=== PATIENT | male | born 1940 | race Asian ===

== ENCOUNTER → 2016-07-04 | Outpatient (CLI) | payer MEDICARE, BC ==
[~2016-07-04] MED LIST: AMIT10TA PO; ATOR10TA9 PO
[2016-07-04 10:54] LABS: HEMOGLOBIN 13.9 g/dL (13.7-18.0)
[2016-07-04 11:06] LABS: ASPARTATE AMINO TRANSFERASE 19 U/L (15-37); BLOOD UREA NITROGEN 14 mg/dL (7-18)
== END | disposition home or self-care (01) ==
LOC: CFH 08:31
PROVIDERS: ATTEND Physician Assistant
DX: E78.5 Hyperlipidemia, unspecified (principal); F41.9 Anxiety disorder, unspecified; Z12.5 Encounter for screening for malignant neoplasm of prostate
CPT/HCPCS: 36415; 80053; 80061; 84153; 85025; G0103

== ENCOUNTER → 2017-04-12 | Outpatient (CLI) | payer MEDICARE, BC ==
[2017-04-12 12:36] LABS: BASOPHILS # (AUTO) 0.05 x10^3/uL (0-0.1); BASOPHILS % (AUTO) 1 % (0-1); EOSINOPHILS # (AUTO) 0.36 x10^3/uL (0-0.4); EOSINOPHILS % (AUTO) 6 % (1-7); LYMPHOCYTES # (AUTO) 1.46 x10^3/uL (1-3.4); LYMPHOCYTES % (AUTO) 24 % (22-44); MD NO; MEAN CORPUSCULAR HEMOGLOBIN 34.7 pg (27.5-34.5); MEAN CORPUSCULAR VOLUME 105.2 fL (81-97); MEAN PLATELET VOLUME 7.2 fL (7.4-10.4); MONOCYTES # (AUTO) 0.48 x10^3/uL (0.2-0.8); MONOCYTES % (AUTO) 8 % (2-9); NEUTROPHILS # (AUTO) 3.86 x10^3/uL (1.8-6.8); NEUTROPHILS % (AUTO) 62 % (42-75); PLATELET COUNT 328 x10^3/uL (130-400); RED CELL DISTRIBUTION WIDTH 13.5 % (9.4-14.8)
[2017-04-12 12:46] LABS: ALANINE AMINOTRANSFERASE 27 U/L (12-78); ANION GAP 6 mmol/L (5-15); CALCIUM 9.3 mg/dL (8.5-10.1); CHLORIDE 107 mmol/L (98-107); CHOLESTEROL, TOTAL 182 mg/dL (140-239); CREATININE 1.02 mg/dL (0.7-1.3)
[2017-04-12 12:49] LABS: ALKALINE PHOSPHATASE 94 U/L (45-117); BILIRUBIN,TOTAL 0.6 mg/dL (0.2-1.0); CHOL/HDL RATIO 3.1; HDL CHOL % 32 % (26-37); HDL CHOLESTEROL (DIRECT) 58 mg/dL (40-60); LDL CHOLESTEROL,CALCULATED 97 mg/dL (54-169); LDL/HDL RATIO 1.7 (0.5-3.0); TOTAL PROTEIN 7.6 g/dL (6.4-8.2); TRIGLYCERIDES 135 mg/dL (50-200); VLDL CHOLESTEROL 27 mg/dL (0-25)
== END ==
LOC: CFH 07:57
PROVIDERS: ATTEND Nurse Practitioner Family
DX: Z12.5 Encounter for screening for malignant neoplasm of prostate (principal); I10 Essential (primary) hypertension; E78.5 Hyperlipidemia, unspecified; H91.90 Unspecified hearing loss, unspecified ear; R35.1 Nocturia
CPT/HCPCS: 36415; 80053; 80061; 84153; 85025; G0103

== ENCOUNTER → 2018-03-23 | Outpatient (CLI) | payer MEDICARE, BC ==
[2018-03-23 12:34] LABS: BASOPHILS # (AUTO) 0.06 x10^3/uL (0-0.1); BASOPHILS % (AUTO) 1 % (0-1); EOSINOPHILS # (AUTO) 0.43 x10^3/uL (0-0.4); EOSINOPHILS % (AUTO) 6 % (1-7); LYMPHOCYTES # (AUTO) 1.31 x10^3/uL (1-3.4); LYMPHOCYTES % (AUTO) 20 % (22-44); MD NO; MEAN CORPUSCULAR HEMOGLOBIN 34.3 pg (27.5-34.5); MEAN CORPUSCULAR HGB CONC 33.5 g/dL (33.2-36.2); MEAN CORPUSCULAR VOLUME 102.3 fL (81-97); MEAN PLATELET VOLUME 7.2 fL (7.4-10.4); MONOCYTES # (AUTO) 0.43 x10^3/uL (0.2-0.8); MONOCYTES % (AUTO) 6 % (2-9); NEUTROPHILS # (AUTO) 4.46 x10^3/uL (1.8-6.8); NEUTROPHILS % (AUTO) 67 % (42-75); PLATELET COUNT 334 x10^3/uL (130-400); RED BLOOD COUNT 4.13 x10^6/uL (4.38-5.82); RED CELL DISTRIBUTION WIDTH 13.9 % (9.4-14.8)
[2018-03-23 12:46] LABS: CHLORIDE 105 mmol/L (98-107)
[2018-03-23 12:51] LABS: ALANINE AMINOTRANSFERASE 30 U/L (12-78); ALBUMIN 3.8 g/dL (3.4-5.0); ALKALINE PHOSPHATASE 112 U/L (45-117); ANION GAP 7 mmol/L (5-15); BILIRUBIN,TOTAL 0.5 mg/dL (0.2-1.0); CALCIUM 9.1 mg/dL (8.5-10.1); CHOL/HDL RATIO 2.7; CHOLESTEROL, TOTAL 205 mg/dL (140-239); HDL CHOL % 37 % (26-37); HDL CHOLESTEROL (DIRECT) 75 mg/dL (40-60); LDL CHOLESTEROL,CALCULATED 101 mg/dL (54-169); LDL/HDL RATIO 1.3 (0.5-3.0); TRIGLYCERIDES 147 mg/dL (50-200); VLDL CHOLESTEROL 29 mg/dL (0-25)
== END | disposition home or self-care (01) ==
LOC: CFH 07:51
PROVIDERS: ATTEND Nurse Practitioner Family
DX: I10 Essential (primary) hypertension (principal); E78.5 Hyperlipidemia, unspecified; F41.9 Anxiety disorder, unspecified; R35.1 Nocturia
CPT/HCPCS: 36415; 80053; 80061; 84153; 85025

== ENCOUNTER → 2019-02-11 | Outpatient (CLI) | payer MEDICARE, BC ==
[2019-02-11 12:49] LABS: BASOPHILS # (AUTO) 0.03 x10^3/uL (0-0.1); BASOPHILS % (AUTO) 0 % (0-1); EOSINOPHILS # (AUTO) 0.35 x10^3/uL (0-0.4); EOSINOPHILS % (AUTO) 5 % (1-7); LYMPHOCYTES # (AUTO) 1.48 x10^3/uL (1-3.4); LYMPHOCYTES % (AUTO) 20 % (22-44); MD NO; MEAN CORPUSCULAR HEMOGLOBIN 34.1 pg (27.5-34.5); MEAN CORPUSCULAR HGB CONC 33.1 g/dL (33.2-36.2); MEAN PLATELET VOLUME 6.8 fL (7.4-10.4); MONOCYTES # (AUTO) 0.38 x10^3/uL (0.2-0.8); MONOCYTES % (AUTO) 5 % (2-9); NEUTROPHILS # (AUTO) 5.27 x10^3/uL (1.8-6.8); NEUTROPHILS % (AUTO) 70 % (42-75); PLATELET COUNT 361 x10^3/uL (130-400); RED BLOOD COUNT 4.16 x10^6/uL (4.38-5.82); RED CELL DISTRIBUTION WIDTH 13.2 % (9.4-14.8)
[2019-02-11 15:04] LABS: CHLORIDE 105 mmol/L (98-107)
[2019-02-11 15:14] LABS: ALANINE AMINOTRANSFERASE 30 U/L (12-78); ALKALINE PHOSPHATASE 102 U/L (45-117); ANION GAP 3 mmol/L (5-15); BILIRUBIN,TOTAL 0.4 mg/dL (0.2-1.0); CALCIUM 9.1 mg/dL (8.5-10.1); TOTAL PROTEIN 7.7 g/dL (6.4-8.2)
== END | disposition home or self-care (01) ==
LOC: CFH 09:29
PROVIDERS: ATTEND Nurse Practitioner Family
DX: I10 Essential (primary) hypertension (principal); F41.9 Anxiety disorder, unspecified
CPT/HCPCS: 36415; 80053; 85025

== ENCOUNTER → 2019-08-07 | Outpatient (CLI) | payer MEDICARE, BC ==
[2019-08-07 13:22] LABS: CHOL/HDL RATIO 2.9; LDL/HDL RATIO 1.5 (0.5-3.0)
== END | disposition home or self-care (01) ==
LOC: CFH 08:09
PROVIDERS: ATTEND Nurse Practitioner Family
DX: E78.5 Hyperlipidemia, unspecified (principal)
CPT/HCPCS: 36415; 80061

== ENCOUNTER 2020-02-19 14:25 | Emergency (ER) | payer MEDICARE, BC ==
[~2020-02-19] VITALS: Ht 152.4 cm; Wt 59.0 kg
[2020-02-19 15:21] LABS: BASOPHILS % (AUTO) 1 % (0-1); EOSINOPHILS % (AUTO) 0 % (1-7); LYMPHOCYTES % (AUTO) 14 % (22-44); MD NO; MEAN CORPUSCULAR HEMOGLOBIN 34.3 pg (27.5-34.5); MEAN CORPUSCULAR HGB CONC 34.4 g/dL (33.2-36.2); MEAN PLATELET VOLUME 6.3 fL (7.4-10.4); MONOCYTES % (AUTO) 14 % (2-9); NEUTROPHILS % (AUTO) 71 % (42-75); PLATELET COUNT 294 x10^3/uL (130-400); RED BLOOD COUNT 3.69 x10^6/uL (4.38-5.82); RED CELL DISTRIBUTION WIDTH 12.9 % (9.4-14.8)
[2020-02-19 15:32] LABS: ALANINE AMINOTRANSFERASE 22 U/L (12-78); ALBUMIN 3.6 g/dL (3.4-5.0); ANION GAP 9 mmol/L (5-15); CALCIUM 8.8 mg/dL (8.5-10.1); CHLORIDE 98 mmol/L (98-107); CREATININE 1.58 mg/dL (0.7-1.3)
[2020-02-19 15:35] LABS: ALKALINE PHOSPHATASE 88 U/L (45-117); BILIRUBIN,TOTAL 0.4 mg/dL (0.2-1.0)
--- NOTE | 2020-02-19 15:54 | NUR ---
PT RESTING IN BED. VSS.
[2020-02-19 15:56] LABS: TROPONIN I < 0.015 ng/mL (0.000-0.045)
[2020-02-19 16:28] VITALS: BP 148/62
[2020-02-22] MEDS ORDERED: SIMV5TAB14 PO (21:24)
[2020-02-22] MEDS ORDERED: ERYT250C37 PO (21:24)
[2020-02-22] MEDS ORDERED: CARV3.1212 PO (21:24)
[2020-02-22] MEDS ORDERED: DULO20CA45 PO (21:24)
[2020-02-22] MEDS ORDERED: PARO10TA56 PO (21:24)
[2020-02-22] MEDS ORDERED: VALS40TA2 PO (21:24)
[2020-02-22] MEDS ORDERED: ATEN25TA PO (21:24)
[2020-02-22] MEDS ORDERED: LISI2.5T PO (21:24)
[2020-02-23] MEDS ORDERED: DOCUSATE 100 MG CAPSULE PO PRN (01:30)
[2020-02-23] MEDS ORDERED: SODIUM CHLORIDE 0.9% 1,000 ML IV SCH (01:30)
[2020-02-23] MEDS ORDERED: ENOXAPARIN 40 MG/0.4 ML SQ SCH (01:30)
[2020-02-23] MEDS ORDERED: CEFTRIAXONE PMX 1GM/50ML 50 ML IV SCH (01:30)
[2020-02-23] MEDS ORDERED: PHARMACY MAY ADJ FOR RENAL FX MC PRN (01:30)
[2020-02-23] MEDS ORDERED: ACETAMINOPHEN 325 MG TABLET PO PRN ×2 (01:30)
[2020-02-23] MEDS ORDERED: DOXYCYCLINE 100 MG in DEXTROSE 5% 250 ML IV SCH (01:30)
[2020-02-23] MEDS ORDERED: CEFTRIAXONE PMX 1GM/50ML 50 ML IVPB SCH (01:30)
[2020-02-23] MEDS ORDERED: ONDANSETRON ODT 4 MG PO PRN (01:30)
[2020-02-23] MEDS ORDERED: MELATONIN 5 MG TABLET PO PRN (01:30)
[2020-02-23] MEDS ORDERED: ASCORBIC ACID 500 MG TABLET PO SCH (09:00)
[2020-02-23] MEDS ORDERED: ZINC SULFATE 220 MG CAPSULE PO SCH (09:00)
[2020-02-23] MEDS ORDERED: CHOLECALCIFEROL (VITAMIN D3) 5000 IU CAP PO SCH (09:00)
== END 2020-02-19 16:30 | disposition home or self-care (01) ==
LOC: ED 15:43
DX: U07.1 COVID-19 (principal); R06.00 Dyspnea, unspecified; R94.31 Abnormal electrocardiogram [ECG] [EKG]; E78.5 Hyperlipidemia, unspecified
CPT/HCPCS: 36415; 71045; 80053; 83880; 84484; 85025; 87635; 93005; 99285

== ENCOUNTER 2020-12-15 07:17 | Emergency (ER) | payer MEDICARE, BC ==
[~2020-12-15] VITALS: Ht 167.6 cm; Wt 56.7 kg
[~2020-12-15 07:17] MED LIST changes: +AMIT50TA PO; +AMOX1TAB12 PO; +ATEN25TA PO; +BRIM5DRO4 EACHEYE; +CARV12.52 PO; +CARV3.1212 PO; +DOCU-131 PO; +DORZ10DR26 EACHEYE; +DULO20CA45 PO; +ERYT250C37 PO; +GABA300C PO; +HYDR25TA6 PO; +LATA2.5D4 EACHEYE; +LISI2.5T12 PO; +LOSA25TA25 PO; +PANT40TA6 PO; +PARO10TA56 PO; +SENN-211 PO; +SIMV5TAB14 PO; +VALA500T8 PO; +VALS40TA2 PO
--- NOTE | 2020-12-15 07:33 | NUR ---
UPON RN ENTRY TO ROOM, PT IN BATHROOM. PT AMBULATES WELL INDEPENDENTLY FROM BATHROOM BACK TO ER ROOM. PT REPORTS URINARY FREQUENCY X3 NIGHTS. ALSO REQUESTS REFILL ON AMITRIPTYLINE HCL 50 MG. PT INSTRUCTED TO CHANGE INTO GOWN. NAD NOTED AT THIS TIME.
--- NOTE | 2020-12-15 08:43 | NUR ---
PT RESTING IN ROOM. CURRENTLY AWAITING ER PROVIDER FOR ASSESSMENT. RESPIRATIONS EVEN AND UNLABORED ON RA.
[2020-12-15 09:14] LABS: MICROSCOPIC INDICATED
--- NOTE | 2020-12-15 09:23 | NUR ---
PT RESTING IN ROOM. NAD NOTED AT THIS TIME. AWAITING LABS.
[2020-12-15 09:51] LABS: BASOPHILS % (AUTO) 1 % (0-1); EOSINOPHILS % (AUTO) 1 % (1-7); LYMPHOCYTES % (AUTO) 11 % (22-44); MEAN CORPUSCULAR HEMOGLOBIN 33.8 pg (27.5-34.5); MEAN CORPUSCULAR HGB CONC 33.9 g/dL (33.2-36.2); MEAN PLATELET VOLUME 7.3 fL (7.4-10.4); MONOCYTES % (AUTO) 10 % (2-9); NEUTROPHILS % (AUTO) 77 % (42-75); PLATELET COUNT 281 x10^3/uL (130-400); RED BLOOD COUNT 3.93 x10^6/uL (4.38-5.82); RED CELL DISTRIBUTION WIDTH 13.6 % (9.4-14.8)
[2020-12-15 10:04] LABS: ALBUMIN 3.4 g/dL (3.4-5.0); ANION GAP 6 mmol/L (5-15); CALCIUM 8.6 mg/dL (8.5-10.1); CHLORIDE 103 mmol/L (98-107); CREATININE 1.45 mg/dL (0.7-1.3)
--- NOTE | 2020-12-15 10:34 | NUR ---
PT CHART UP FOR RECHECK.
--- NOTE | 2020-12-15 10:38 | NUR ---
PT ASLEEP IN RWISTER, RESPIRATIONS EVEN AND UNLABORED ON RA.
--- NOTE | 2020-12-15 11:32 | NUR ---
ERMD AT BEDSIDE FOR REASSESSMENT. NAD NOTED IN PT AT THIS TIME.
[2020-12-15 11:58] VITALS: BP 115/62
== END 2020-12-15 12:07 | disposition home or self-care (01) ==
LOC: ED 07:34
DX: N30.00 Acute cystitis without hematuria (principal); Z76.0 Encounter for issue of repeat prescription; I10 Essential (primary) hypertension; Z87.891 Personal history of nicotine dependence
CPT/HCPCS: 36415; 80048; 81001; 82040; 85025; 87077; 87086; 87186; 99285